=== PATIENT | female | born 1985 | race Two or more races ===

== ENCOUNTER 2020-04-04 19:42 | Emergency (ER) | payer OTHER ==
[~2020-04-04] VITALS: Ht 165.1 cm; Wt 69.9 kg
[2020-04-04] MEDS ORDERED: PEPCID AC20 MG PO (22:53)
[2020-04-04] MEDS ORDERED: VISTARIL25 MG PO (22:53)
[2020-04-04] MEDS ORDERED: KETO10TA2 PO (22:53)
== END 2020-04-04 23:32 ==
LOC: ER 19:42
DX: R07.89 Other chest pain (principal); F06.4 Anxiety disorder due to known physiological condition; Z20.828 Contact with and (suspected) exposure to other viral communicable diseases